=== PATIENT | female | born 1945 | race Caucasian/White ===

== ENCOUNTER 2018-06-26 14:20 | Inpatient (IN) | payer BC ==
[~2018-06-26] VITALS: Ht 172.7 cm; Wt 60.3 kg
--- NOTE | 2018-06-26 14:25 | NUR ---
AAOX3, BIB C/O WORSENING DEPRESSION AND LOSS OF APPETITE, DENIES SI/HI. RR IS EVEN AND UNLABORED WITH NAD NOTED. SKIN IS WARM AND DRY. DR FRANKLIN AT BS FOR EVAL.
[2018-06-26] MEDS ORDERED: ATOR40TA PO (14:54)
[2018-06-26] MEDS ORDERED: BENA40TA8 PO (14:54)
[2018-06-26] MEDS ORDERED: TRIA1CAP20 PO (14:54)
[2018-06-26] MEDS ORDERED: ESCI10TA PO (14:54)
[2018-06-26] MEDS ORDERED: MEMA10TA21 PO (14:54)
[2018-06-26] MEDS ORDERED: CARV3.122 PO (14:54)
[2018-06-26] MEDS ORDERED: MIRT30TA7 PO (14:54)
[2018-06-26] MEDS ORDERED: DONE5TAB34 PO (14:54)
[2018-06-26 15:00] LABS: BASOPHILS % (AUTO) 1.2 % (0.0-2.0); EOSINOPHILS % (AUTO) 1.6 % (0.0-6.0); HEMATOCRIT 32 % (33-45); LYMPHOCYTES # (AUTO) 0.9 /CMM (0.8-4.8); LYMPHOCYTES % (AUTO) 22.3 % (20.0-44.0); MEAN CORPUSCULAR HGB CONC 34 g/dl (31.0-36.0); MEAN CORPUSCULAR VOLUME 90 fL (82-100); MONOCYTES # (AUTO) 0.5 /CMM (0.1-1.30); MONOCYTES % (AUTO) 12.4 % (2.0-12.0); NEUTROPHILS # (AUTO) 2.6 /CMM (1.8-8.9); NEUTROPHILS % (AUTO) 62.5 % (43.0-81.0); PLATELET COUNT (AUTO) 251 /CMM (150-450); RDW COEFFICIENT OF VARIATION 11.4 (11.5-15.0); WHITE BLOOD COUNT (AUTO) 4.1 K/uL (4.3-11.0)
[2018-06-26 15:12] LABS: ALCOHOL, BLOOD < 3 mg/dL (0-0); CALCIUM, SERUM 8.6 mg/dL (8.5-10.1); CARBON DIOXIDE 26 mmol/L (21-32); CHLORIDE 90 mmol/L (98-107); CREATININE 1.7 mg/dL (0.6-1.3); GLUCOSE 106 mg/dL (74-106); POTASSIUM 4.2 mmol/L (3.5-5.1); SODIUM SERUM 121 mmol/L (136-145); UREA NITROGEN, BLOOD 19 mg/dL (7-18)
[2018-06-26] MEDS ORDERED: IV NS 0.9% 1,000 ML IV ONE (15:30)
--- NOTE | 2018-06-26 16:37 | NUR ---
REPORT GIVEN TO MO HOLT FOR DARÍO MS 207-2
--- NOTE | 2018-06-26 17:15 | NUR ---
PATIENT TRANSPORTED TO [facility] VIA STRETCHER. RNYANET TO PROVIDE DARÍO.
[2018-06-26] MEDS ORDERED: MAGNESIUM HYDROXIDE 30 ML UDC PO PRN (18:00)
[2018-06-26] MEDS ORDERED: Z GUARD REMEDY 2 OZ OINT TP PRN (18:00)
[2018-06-26] MEDS ORDERED: ACETAMINOPHEN 325 MG TABLET PO PRN (18:00)
[2018-06-26 18:06] VITALS: BP 122/73
--- NOTE | 2018-06-26 18:17 | NUR ---
FIXED WING PILOT PATIENT A/OX2, FORGETFUL, DENIES SI/HI, NO DISTRESS NOTED, ADMITTED FOR HYPONATREMIA, RECEIVED ORDERS FROM DR. NITA CRABTREE. ORDERS NOTED AND CARRIED OUT. PATIENT SKIN CLEAR AND INTACT, NEEDS ATTENDED AND MET, ASSESSMENTS COMPLETED, CALL LIGHT WITHIN REACH, WILL ENDORSE TO ASSEMBLER FLUORESCENT LIGHTS FOR DARÍO.
[2018-06-26] MEDS: DONEPEZIL 5 MG TABLET PO SCH (18:28)
[2018-06-26] MEDS: ATORVASTATIN 40 MG TABLET PO SCH (18:28)
[2018-06-26] MEDS: IV NS 0.9% 1,000 ML IV PRN (18:35)
--- NOTE | 2018-06-26 19:30 | NUR ---
MS RN OPENING NOTES RECEIVED PATIENT RESTING IN BED. A/OX3, DENIES SI/HI, NO DISTRESS NOTED, NO SOB, NO C/O PAIN VERBALIZED. IV ACCESS TO RFA, INTACT PATENT, RUNNING WITH IVF ORDERED. ON REGULAR DIET, TOLERATING WELL. BRP/AMBULATORY/STEADY. PATIENT SKIN CLEAR AND INTACT. BED IN LOW LOCKED POSITION. CALL LIGHT WITHIN REACH, WILL MONITOR ACCORDINGLY.
[2018-06-26 20:00] VITALS: BP 134/58
[2018-06-26] MEDS: MIRTAZAPINE 15 MG TABLET PO SCH (22:06)
--- NOTE | 2018-06-27 07:05 | NUR ---
MS RN CLOSING NOTES PATIENT SLEPT INTERMITTENTLY AT NIGHT. A/OX3 WITH FORGETFULNESS, DENIES SI/HI, NO DISTRESS NOTED, NO SOB, NO C/O PAIN VERBALIZED. IV ACCESS TO RFA, INTACT PATENT, RUNNING WITH IVF ORDERED. ON REGULAR DIET, TOLERATING WELL. BRP/AMBULATORY/STEADY. ALL NEEDS MET. BED IN LOW LOCKED POSITION. PT MOVED TO ROOM 306-2 IN STABLE CONDITION. CALL LIGHT WITHIN REACH, ENDORSED TO AM RN FOR CONTINUITY OF CARE.
--- NOTE | 2018-06-27 07:11 | NUR ---
RN OPENING NOTES RECEIVED PATIENT IN BED RESTING, A/OX3, WITH FORGETFULNESS, DENIED SI. ABLE TO MAKE NEEDS KNOWN. NO ACUTE DISTRESS, NO SOB. DENIED PAIN OR DISCOMFORT AT THIS MOMENT. IV SITE INTACT AND PATENT, IVF INFUSING ORDERED. KEPT PATIENT SAFE AND COMFORTABLE. BED IN LOW/LOCKED POSITION, SIDERAILS UPX2, CALL LIGHT IN REACH. WILL CONTINUE TO MONITOR ACCORDINGLY.
[2018-06-27 07:34] LABS: BASOPHILS # (AUTO) 0.1 /CMM (0.0-0.2); BASOPHILS % (AUTO) 1.6 % (0.0-2.0); EOSINOPHILS % (AUTO) 3.2 % (0.0-6.0); HEMATOCRIT 32 % (33-45); HEMOGLOBIN 10.5 g/dL (11.5-14.8); MEAN CORPUSCULAR HGB CONC 33 g/dl (31.0-36.0); MEAN CORPUSCULAR VOLUME 93 fL (82-100); MONOCYTES # (AUTO) 0.5 /CMM (0.1-1.30); MONOCYTES % (AUTO) 9.7 % (2.0-12.0); NEUTROPHILS # (AUTO) 3.6 /CMM (1.8-8.9); NEUTROPHILS % (AUTO) 66.5 % (43.0-81.0); PLATELET COUNT (AUTO) 222 /CMM (150-450); RDW COEFFICIENT OF VARIATION 12.6 (11.5-15.0); RED BLOOD CELL COUNT(AUTO) 3.41 MIL/uL (4.0-5.2); WHITE BLOOD COUNT (AUTO) 5.4 K/uL (4.3-11.0)
[2018-06-27 07:52] LABS: ALANINE AMINOTRANSFERASE 22 U/L (12-78); ALBUMIN 3.3 g/dL (3.4-5.0); ALKALINE PHOSPHATASE 56 U/L (46-116); ASPARTATE AMINOTRANSFERASE 26 U/L (15-37); BILIRUBIN,TOTAL 0.4 mg/dL (0.2-1.0); CALCIUM, SERUM 8.3 mg/dL (8.5-10.1); CARBON DIOXIDE 24 mmol/L (21-32); CHLORIDE 93 mmol/L (98-107); CREATININE 1.2 mg/dL (0.6-1.3); GLUCOSE 85 mg/dL (74-106); MAGNESIUM 1.5 mg/dL (1.8-2.4); PHOSPHORUS 2.5 mg/dL (2.5-4.9); SODIUM SERUM 125 mmol/L (136-145); TOTAL PROTEIN, SERUM 6.2 g/dL (6.4-8.2); UREA NITROGEN, BLOOD 14 mg/dL (7-18)
[2018-06-27 07:56] LABS: CHOLESTEROL 101 mg/dL (<200); HDL CHOLESTEROL 46 mg/dL (40-60); LDL 53 mg/dL (0-99); THYROID STIMULATING HORMONE 3.172 uIU/mL (0.358-3.74); TRIGLYCERIDES 67 mg/dL (30-150)
[2018-06-27 08:01] LABS: IRON, SERUM 67 ug/dl (50-175); TOTAL IRON BINDING CAPACITY 239 ug/dl (250-450)
[2018-06-27] MEDS: ONDANSETRON HCL/PF 4 MG/2 ML VIAL IVP PRN ×2 (08:23→14:45)
[2018-06-27] MEDS: MEMANTINE HCL 5 MG TABLET PO SCH ×2 (08:25→17:04)
[2018-06-27] MEDS: BENAZEPRIL HCL 20 MG TABLET PO SCH (08:25)
[2018-06-27] MEDS: ESCITALOPRAM OXALATE (10 MG) 10 MG TABLET PO SCH (08:25)
[2018-06-27] MEDS: CARVEDILOL 3.125 MG TABLET PO SCH ×2 (08:25→17:04)
[2018-06-27 08:32] VITALS: BP 128/55
[2018-06-27] MEDS: Magnesium 1GM/D5W 100ML PREMIX 100 ML IV SCH ×2 (10:26→12:35)
[2018-06-27 15:19] LABS: APPEARANCE,URINE SL CLOUDY (CLEAR); BILIRUBIN,URINE NEGATIVE (NEGATIVE); BLOOD, URINE 1+ Ery/uL (NEGATIVE); COLOR,URINE YELLOW (YELLOW); KETONES,URINE NEGATIVE (NEGATIVE); LEUKOCYTE ESTERASE ,URINE 2+ (NEGATIVE); NITRITE, URINE NEGATIVE (NEGATIVE); PROTEIN,URINE NEGATIVE (NEGATIVE); UGLUCOSE NEGATIVE (NEGATIVE); UROBILINOGEN,URINE 0.2 EU/dL (0.2)
[2018-06-27 15:33] LABS: BACTERIA,URINE Many /HPF (None Seen); SQUAMOUS EPITHELIAL CELL,UR Few /HPF (None Seen)
--- NOTE | 2018-06-27 15:38 | NUR ---
RN NOTES PATIENT STILL COMPLAINTS OF NAUSEA STATING ZOFRAN IS NOT WORKING. NOTIFIED DR NITA CRABTREE, NEW ORDER OF REGLAN 10 MG IV Q8H PRN NOTED AND WILL CARRY OUT.
[2018-06-27 15:58] LABS: CREATININE, URINE 42.6 MG/DL (30.0-125.0); URINE TOTAL PROTEIN 6.9 mg/dL (0-11.9)
[2018-06-27 16:03] VITALS: BP 144/70
[2018-06-27 16:32] LABS: EOSINOPHIL,URINE None Seen
[2018-06-27] MEDS: DONEPEZIL 5 MG TABLET PO SCH (17:03)
[2018-06-27] MEDS: ATORVASTATIN 40 MG TABLET PO SCH (17:04)
[2018-06-27] MEDS: METOCLOPRAMIDE HCL 10 MG/2 ML VIAL IV PRN (17:05)
--- NOTE | 2018-06-27 17:46 | NUR ---
RN NOTES: HOME MEDS HOME MEDICATION BROUGHT BY FAMILY MEMBER WAS GIVEN TO THE PHARMACY
[2018-06-27] MEDS: ENSURE ENLIVE 237 ML LIQUID (VANILLA) PO SCH (17:54)
--- NOTE | 2018-06-27 18:14 | NUR ---
RN NOTES: PSYCH CONSULT FOLLOWED UP WITH [facility] REGARDING PSYCH CONSULT. PER ASHA BUNDY DISASTER RECOVERY SPECIALIST, THEY HANDED THE PATIENT'S FACESHEET TO DR OLVERA THIS MORNING.
--- NOTE | 2018-06-27 19:08 | NUR ---
RN CLOSING NOTES PATIENT IN STABLE CONDITION. FAMILY AT BEDSIDE. ALL NEEDS ATTENDED AND PROVIDED. ALL DUE MEDICATIONS GIVEN A ORDERED. KEPT PATIENT SAFE AND COMFORTABLE. BED IN LOW/LOCKED POSITION, SIDERAILS UPX2, BED ALARM ON, CALL LIGHT IN REACH. ENDORSED TO NIGHT RN FOR DARÍO.
--- NOTE | 2018-06-27 19:08 | NUR ---
MS RN OPENING NOTES RECEIVED PATIENT RESTING IN BED. A/OX3, @ BED SIDE. DENIES SI/HI, NO DISTRESS NOTED, NO SOB, NO C/O PAIN VERBALIZED. IV ACCESS TO RFA, INTACT PATENT, RUNNING WITH IVF ORDERED. ON REGULAR DIET, TOLERATING WELL. BRP/AMBULATORY/STEADY. BED IN LOW LOCKED POSITION. SAFETY MEASURES IN PLACE. CALL LIGHT WITHIN REACH, WILL MONITOR ACCORDINGLY.
[2018-06-27 19:43] LABS: URINE SODIUM, RANDOM 35 mmol/l (40-220)
[2018-06-27 20:00] VITALS: BP 103/55
[2018-06-27 20:00] LABS: OSMOLALITY,URINE 247 mOS/kg (340-1090)
[2018-06-27] MEDS: IV NS 0.9% 1,000 ML IV PRN (21:05)
[2018-06-27] MEDS: MIRTAZAPINE 15 MG TABLET PO SCH (21:06)
--- NOTE | 2018-06-28 01:00 | NUR ---
MS RN NOTE PATIENT NOTED TO BE SLEEPING COMFORTABLY, NO ACUTE DISTRESS NOTED. MONITORING CLOSELY.
[2018-06-28 06:17] LABS: ALANINE AMINOTRANSFERASE 20 U/L (12-78); ALBUMIN 3.1 g/dL (3.4-5.0); ALKALINE PHOSPHATASE 59 U/L (46-116); ASPARTATE AMINOTRANSFERASE 25 U/L (15-37); BILIRUBIN,TOTAL 0.3 mg/dL (0.2-1.0); CALCIUM, SERUM 8.1 mg/dL (8.5-10.1); CARBON DIOXIDE 25 mmol/L (21-32); CHLORIDE 94 mmol/L (98-107); GLUCOSE 83 mg/dL (74-106); MAGNESIUM 1.8 mg/dL (1.8-2.4); PHOSPHORUS 2.4 mg/dL (2.5-4.9); POTASSIUM 4.4 mmol/L (3.5-5.1); SODIUM SERUM 124 mmol/L (136-145); TOTAL PROTEIN, SERUM 5.9 g/dL (6.4-8.2); UREA NITROGEN, BLOOD 12 mg/dL (7-18)
[2018-06-28 06:25] LABS: BASOPHILS # (AUTO) 0.1 /CMM (0.0-0.2); BASOPHILS % (AUTO) 1.5 % (0.0-2.0); EOSINOPHILS % (AUTO) 4.1 % (0.0-6.0); HEMATOCRIT 30 % (33-45); LYMPHOCYTES # (AUTO) 1.1 /CMM (0.8-4.8); LYMPHOCYTES % (AUTO) 18.1 % (20.0-44.0); MEAN CORPUSCULAR HGB CONC 33 g/dl (31.0-36.0); MEAN CORPUSCULAR VOLUME 93 fL (82-100); MONOCYTES # (AUTO) 0.6 /CMM (0.1-1.30); MONOCYTES % (AUTO) 9.5 % (2.0-12.0); NEUTROPHILS # (AUTO) 4.1 /CMM (1.8-8.9); NEUTROPHILS % (AUTO) 66.8 % (43.0-81.0); PLATELET COUNT (AUTO) 210 /CMM (150-450); RDW COEFFICIENT OF VARIATION 12.6 (11.5-15.0); RED BLOOD CELL COUNT(AUTO) 3.27 MIL/uL (4.0-5.2); WHITE BLOOD COUNT (AUTO) 6.1 K/uL (4.3-11.0)
--- NOTE | 2018-06-28 06:32 | NUR ---
MS RN CLOSING NOTES PATIENT SLEPT INTERMITTENTLY AT NIGHT. A/OX3 WITH FORGETFULNESS, DENIES SI/HI, NO DISTRESS NOTED, NO SOB, NO C/O PAIN VERBALIZED. IV ACCESS TO RFA, INTACT PATENT, RUNNING WITH IVF ORDERED. BRP/AMBULATORY/STEADY. ALL NEEDS MET. BED IN LOW LOCKED POSITION. CALL LIGHT WITHIN REACH, ENDORSED TO AM RN FOR CONTINUITY OF CARE.
--- NOTE | 2018-06-28 07:43 | NUR ---
RN NOTES PATIENT A/OX2, FORGETFUL, BREATHING EVEN AND UNLABORED, NO SOB NOTED, DENIES PAIN OR DISCOMFORT AT THIS TIME, IVF INFUSING AND TOLERATING WELL, CALL LIGHT WITHIN REACH, WILL CONTINUE TO MONITOR.
[2018-06-28 08:13] VITALS: BP 125/58
[2018-06-28] MEDS: CARVEDILOL 3.125 MG TABLET PO SCH ×2 (09:00→16:18)
[2018-06-28] MEDS: ENSURE ENLIVE 237 ML LIQUID (VANILLA) PO SCH ×3 (09:05→17:09)
[2018-06-28] MEDS: MEMANTINE HCL 5 MG TABLET PO SCH ×2 (09:06→17:09)
[2018-06-28] MEDS: ESCITALOPRAM OXALATE (10 MG) 10 MG TABLET PO SCH (09:06)
[2018-06-28] MEDS: BENAZEPRIL HCL 20 MG TABLET PO SCH (09:06)
[2018-06-28] MEDS: METOCLOPRAMIDE HCL 10 MG/2 ML VIAL IV PRN (09:33)
[2018-06-28] MEDS ORDERED: Sodium Phosphate 15 MMOL in IV D5W 250 ML IV ONE (10:30)
[2018-06-28] MEDS: IV NS 0.9% 1,000 ML IV PRN (11:15)
[2018-06-28 16:18] VITALS: BP 120/58
[2018-06-28] MEDS: DONEPEZIL 5 MG TABLET PO SCH (17:09)
[2018-06-28] MEDS: ATORVASTATIN 40 MG TABLET PO SCH (17:09)
[2018-06-28] MEDS: ONDANSETRON HCL/PF 4 MG/2 ML VIAL IVP PRN (18:03)
--- NOTE | 2018-06-28 18:24 | NUR ---
RN NOTES PATIENT A/OX2, VERY FORGETFUL, PATIENT WAS SEEN BY DR. OLVERA, NO NEW ORDER AT THIS TIME. IVF INFUSING AND TOLERATING WELL, AT BEDSIDE, PATIENT DENIES SI/I AT THIS TIME. ENCOURAGED ORAL INTAKE, IMPLEMENTED FLUID RESTRICTION OF 800ML/DAY. NEEDS ATTENDED AND MET, CALL LIGHT WITHIN REACH, WILL ENDORSE TO ELECTROLYSIS ENGINEER FOR DARÍO.
--- NOTE | 2018-06-28 19:15 | NUR ---
MS RN OPENING NOTES: RECEIVED PT ON ROM AIR AND IS TOLERATING WELL. AT BEDSIDE. PT IS A/OX2-3. PT HAS IV ON R FOREARM #22G AND IS BEING INFUSED WITH NS AT 75ML/HR. CALL LIGHT WITHIN PT'S REACH. BED KEPT IN LOW, LOCKED POSITION, AND SIDE RAILS X 2UP. WILL CONTINUE TO MONITOR PT.
[2018-06-28 20:00] VITALS: BP 104/48
[2018-06-28] MEDS: MIRTAZAPINE 15 MG TABLET PO SCH (21:10)
[2018-06-29] MEDS: IV NS 0.9% 1,000 ML IV PRN (05:15)
--- NOTE | 2018-06-29 06:17 | NUR ---
MS RN CLOSING NOTES: ALL NEEDS WERE ATTENDED AND ANTICIPATED FOR. PT KEPT CLEAN, DRY, AND COMFORTABLE. PT RESTING IN BED COMFORTABLY AT THIS TIME. PT NEEDS CONSTANT REORIENTATION PT HAS EPISODES OF FORGETFULNESS. PT HAS IV AND IS BEING INFUSED WITH NS 75ML/HR. CALL LIGHT WITHIN PT'S REACH. BED KEPT IN LOW, LOCKED POSITION, AND SIDE RAILS X 2UP. WILL ENDORSE TO AM NURSE FOR DARÍO.
[2018-06-29 06:38] LABS: BASOPHILS # (AUTO) 0.1 /CMM (0.0-0.2); BASOPHILS % (AUTO) 1.2 % (0.0-2.0); EOSINOPHILS % (AUTO) 2.7 % (0.0-6.0); HEMATOCRIT 29 % (33-45); HEMOGLOBIN 9.9 g/dL (11.5-14.8); LYMPHOCYTES % (AUTO) 16.2 % (20.0-44.0); MEAN CORPUSCULAR HGB CONC 34 g/dl (31.0-36.0); MEAN CORPUSCULAR VOLUME 92 fL (82-100); MONOCYTES # (AUTO) 0.7 /CMM (0.1-1.30); MONOCYTES % (AUTO) 10.6 % (2.0-12.0); NEUTROPHILS # (AUTO) 4.3 /CMM (1.8-8.9); NEUTROPHILS % (AUTO) 69.3 % (43.0-81.0); PLATELET COUNT (AUTO) 211 /CMM (150-450); RDW COEFFICIENT OF VARIATION 12.9 (11.5-15.0); RED BLOOD CELL COUNT(AUTO) 3.19 MIL/uL (4.0-5.2); WHITE BLOOD COUNT (AUTO) 6.2 K/uL (4.3-11.0)
[2018-06-29 06:57] LABS: ALANINE AMINOTRANSFERASE 20 U/L (12-78); ALBUMIN 2.9 g/dL (3.4-5.0); ALKALINE PHOSPHATASE 56 U/L (46-116); ASPARTATE AMINOTRANSFERASE 22 U/L (15-37); BILIRUBIN,TOTAL 0.2 mg/dL (0.2-1.0); CARBON DIOXIDE 27 mmol/L (21-32); CHLORIDE 99 mmol/L (98-107); CREATININE 0.8 mg/dL (0.6-1.3); GLUCOSE 83 mg/dL (74-106); MAGNESIUM 1.7 mg/dL (1.8-2.4); PHOSPHORUS 2.4 mg/dL (2.5-4.9); SODIUM SERUM 130 mmol/L (136-145); TOTAL PROTEIN, SERUM 5.7 g/dL (6.4-8.2); UREA NITROGEN, BLOOD 11 mg/dL (7-18)
--- NOTE | 2018-06-29 07:05 | NUR ---
MS RN INITIAL NOTES report received at bedside. patient received in bed, awake, and verbally responsive. Denies any pain at the moment. No SOB/labored breathing noted. Not in any type of distress. IV on right forearm noted with NS fluids running. Safety measures in place. Will continue to monitor and assess patient.
[2018-06-29 08:00] VITALS: BP 131/60
[2018-06-29] MEDS: BENAZEPRIL HCL 20 MG TABLET PO SCH (08:46)
[2018-06-29] MEDS: ESCITALOPRAM OXALATE (10 MG) 10 MG TABLET PO SCH (08:46)
[2018-06-29] MEDS: MEMANTINE HCL 5 MG TABLET PO SCH ×2 (08:46→17:27)
[2018-06-29] MEDS: CARVEDILOL 3.125 MG TABLET PO SCH ×2 (08:46→17:27)
[2018-06-29] MEDS: ENSURE ENLIVE 237 ML LIQUID (VANILLA) PO SCH ×3 (09:31→17:37)
[2018-06-29] MEDS: Magnesium 1GM/D5W 100ML PREMIX 100 ML IV SCH ×2 (10:40→11:14)
[2018-06-29] MEDS ORDERED: K PHOS NEUTRAL 250 MG TABLET PO ONE (11:00)
[2018-06-29 16:00] VITALS: BP 123/68
[2018-06-29] MEDS: DONEPEZIL 5 MG TABLET PO SCH (17:27)
[2018-06-29] MEDS: ATORVASTATIN 40 MG TABLET PO SCH (17:27)
--- NOTE | 2018-06-29 19:42 | NUR ---
MS RN OPENING NOTES PT WAS RECIEVED IN BED AT LOWEST AND LOCKED POSITION WITH SIDE RAILS UP X2, NO S/S OF PAIN OR DISTRESS NOTED, BREATHING IS EVEN AND UNLABORED ON RA, PT IS AMBULATORY, SKIN IS DRY AND INTACT, SAFETY PRECAUTIONS IN PLACE, WILL CONTINUE TO MONITOR.
--- NOTE | 2018-06-29 19:51 | NUR ---
MS RN CLOSING NOTES Dr. Stinson came to visit and interview patient. Awaiting for accepting facility. Report given to oncoming shift nurse. Patient in bed, awake and verbally responsive. Alert and oriented x2-3 with episodes of confusion and forgetfulness. Denies any pain. All due meds given and tolerated. No IV access (provider aware). Continue to encourage patient to increase oral intake. On room air with no SOB/labored breathing noted. Not in any type of distress. Afebrile. All needs anticipated and met. Bed in locked and lowest position with call light within reach. Endorsed to oncoming shift nurse.
[2018-06-29 20:00] VITALS: BP 113/68
[2018-06-29] MEDS: MIRTAZAPINE 15 MG TABLET PO SCH (21:55)
[2018-06-29] MEDS ORDERED: risperiDONE 0.25 MG TABLET PO ONE (22:00)
[2018-06-30 06:36] LABS: CALCIUM, SERUM 8.6 mg/dL (8.5-10.1); CARBON DIOXIDE 28 mmol/L (21-32); CHLORIDE 100 mmol/L (98-107); CREATININE 0.8 mg/dL (0.6-1.3); GLUCOSE 89 mg/dL (74-106); MAGNESIUM 1.8 mg/dL (1.8-2.4); PHOSPHORUS 2.7 mg/dL (2.5-4.9); POTASSIUM 4.3 mmol/L (3.5-5.1); SODIUM SERUM 134 mmol/L (136-145); UREA NITROGEN, BLOOD 10 mg/dL (7-18)
--- NOTE | 2018-06-30 06:38 | NUR ---
MS RN CLOSING NOTES PT IN BED AT LOWEST AND LOCKED POSITION WITH SIDE RAILS UP X2, NO S/S OF PAIN OR DISTRESS NOTED, BREATHING IS EVEN AND UNLABORED ON RA, A/O X2 SHE HAS BRIEF PERIODS OF CONFUSION AND FORGETFULNESS, PT IS AMBULATORY, SKIN IS DRY AND INTACT, SAFETY PRECAUTIONS IN PLACE, CALL LIGHT WITHIN REACH, ALL NEEDS ATTENDED TO, WILL ENDORSE TO DAY SHIFT FOR DARÍO.
--- NOTE | 2018-06-30 07:23 | NUR ---
RN OPENING NOTES RECEIVED PATIENT IN BED RESTING, A/OX2, WITH EPISODES OF CONFUSION AND FORGETFULNESS, REORIENTED PATIENT OF POC. DENIED SI. ABLE TO MAKE NEEDS KNOWN. NO ACUTE DISTRESS, NO SOB. DENIED PAIN OR DISCOMFORT AT THIS MOMENT. NO IV ACCESS. FOR DISCHARGE, WAITING FOR PLACEMENT. KEPT PATIENT SAFE AND COMFORTABLE. BED IN LOW/LOCKED POSITION, SIDERAILS UPX2, CALL LIGHT IN REACH. WILL CONTINUE TO MONITOR ACCORDINGLY.
[2018-06-30 08:00] VITALS: BP 124/53
[2018-06-30] MEDS: risperiDONE 0.25 MG TABLET PO SCH ×2 (09:20→17:42)
[2018-06-30] MEDS: ESCITALOPRAM OXALATE (10 MG) 10 MG TABLET PO SCH (09:21)
[2018-06-30] MEDS: BENZTROPINE MESYLATE (1 MG) 1 MG TABLET PO SCH ×2 (09:22→17:43)
[2018-06-30] MEDS: BENAZEPRIL HCL 20 MG TABLET PO SCH (09:23)
[2018-06-30] MEDS: MEMANTINE HCL 5 MG TABLET PO SCH ×2 (09:23→17:46)
[2018-06-30] MEDS: CARVEDILOL 3.125 MG TABLET PO SCH ×2 (09:23→17:45)
[2018-06-30] MEDS: ENSURE ENLIVE 237 ML LIQUID (VANILLA) PO SCH ×3 (09:24→17:48)
[2018-06-30] MEDS: CEPHALEXIN MONOHYDRATE 500 MG CAPSULE PO SCH ×2 (11:45→21:21)
[2018-06-30 16:00] VITALS: BP 110/51
[2018-06-30] MEDS: ATORVASTATIN 40 MG TABLET PO SCH (17:43)
[2018-06-30] MEDS: DONEPEZIL 5 MG TABLET PO SCH (17:44)
--- NOTE | 2018-06-30 19:25 | NUR ---
RN CLOSING NOTES PATIENT IN STABLE CONDITION. AT BEDSIDE. ALL NEEDS ATTENDED AND PROVIDED. ALL DUE MEDICATIONS GIVEN ORDERED. KEPT PATIENT SAFE AND COMFORTABLE. BED IN LOW/LOCKED POSITION, SIDEAILS UPX2, CALL LIGHT IN REACH. ENDORSED TO NIGHT RN FOR DARÍO.
--- NOTE | 2018-06-30 19:25 | NUR ---
RN INITIAL NOTES Received patient in bed, alert, oriented x 2. at bedside. Breathing even and unlabored. Not in any distress. No complaints as of this time. Call alcocer within reach, bed in low locked position. Patient stable as per morning shift RN. Will continue to monitor accordingly
--- NOTE | 2018-06-30 19:35 | NUR ---
RN NOTES Patient's IV line already removed by morning shift RN.
[2018-06-30 20:00] VITALS: BP 97/44
[2018-06-30] MEDS: MIRTAZAPINE 15 MG TABLET PO SCH (21:22)
--- NOTE | 2018-06-30 23:46 | NUR ---
RN NOTES Vital signs re-checked. BP- 108/59, HR- 60, RR- 18, SPO2- 97% on RA. Patient is calm and cooperative and denies any SI. Will continue to monitor accordingly
[2018-07-01 00:15] VITALS: BP 108/59
--- NOTE | 2018-07-01 06:59 | NUR ---
RN CLOSING NOTES PATIENT IN STABLE CONDITION. SLEPT THROUGH THE NIGHT. ALL NEEDS ATTENDED TO AND PROVIDED FOR. ALL DUE MEDICATIONS GIVEN ORDERED. KEPT PATIENT SAFE AND COMFORTABLE. BED IN LOW/LOCKED POSITION, SIDEAILS UPX2, CALL LIGHT IN REACH. WILL ENDORSE DARÍO TO ONCOMING RN.
[2018-07-01 08:00] VITALS: BP 123/60
--- NOTE | 2018-07-01 08:00 | NUR ---
MS RN AM NOTES Received patient in bed, alert, oriented x 2. at bedside. Breathing even and unlabored. Not in any distress. No complaints as of this time. No s/s of HI/SI.Call alcocer within reach, bed in low locked position. Patient with stable V/S and ambulated in the hallway with the .Pending discharge for psych placement.Will continue to monitor accordingly
[2018-07-01 08:27] VITALS: BP 123/60
[2018-07-01] MEDS: CARVEDILOL 3.125 MG TABLET PO SCH (09:40)
[2018-07-01] MEDS: BENAZEPRIL HCL 20 MG TABLET PO SCH (09:40)
[2018-07-01] MEDS: CEPHALEXIN MONOHYDRATE 500 MG CAPSULE PO SCH (09:40)
[2018-07-01] MEDS: ESCITALOPRAM OXALATE (10 MG) 10 MG TABLET PO SCH (09:40)
[2018-07-01] MEDS: MEMANTINE HCL 5 MG TABLET PO SCH (09:41)
[2018-07-01] MEDS: risperiDONE 0.25 MG TABLET PO SCH (09:41)
[2018-07-01] MEDS: BENZTROPINE MESYLATE (1 MG) 1 MG TABLET PO SCH (09:44)
[2018-07-01] MEDS: ENSURE ENLIVE 237 ML LIQUID (VANILLA) PO SCH ×2 (09:44→12:39)
[2018-07-01 16:00] VITALS: BP 99/51
--- NOTE | 2018-07-01 17:00 | NUR ---
DISCHARGED PT HOME WITH [facility] .FOLLOW UP FOR SAFETY EVAL.DISCHARGE INSTRUCTIONS,PRESCRIPTIONS,MED AND HEALTH TEACHING GIVEN TO THE PT.SKIN INTACT.CALLED IN PSYCH MEDS TO [facility] AND SPOKE TO YONAS OF [facility].FAXED ALL MED ORDERS AND CONFIRMED RECEIVED BY [facility],ANGELITA SHARYN.INSTRUCTED TO F/U WITH OUTPATIENT BEHAVIORAL UNIT WHICH [facility] WILL ASSIST FAMILY TO F/U PER FERDINAND TAYLOR MGR.
== END 2018-07-01 17:05 | disposition home health service (06) | DRG 682 ==
LOC: ER 14:22 → MEDSG2 16:43 → MED 06-27 06:27
PROVIDERS: ADMIT Nurse Practitioner Acute Care; ATTEND Nurse Practitioner Acute Care
DX: N17.0 Acute kidney failure with tubular necrosis (principal); G93.41 Metabolic encephalopathy; E87.1 Hypo-osmolality and hyponatremia; N39.0 Urinary tract infection, site not specified; E86.0 Dehydration; F41.9 Anxiety disorder, unspecified; I10 Essential (primary) hypertension; E78.5 Hyperlipidemia, unspecified; F29 Unspecified psychosis not due to a substance or known physiological condition; T50.2X5A Adverse effect of carbonic-anhydrase inhibitors, benzothiadiazides and other diuretics, initial encounter; F31.9 Bipolar disorder, unspecified; F01.50 Vascular dementia, unspecified severity, without behavioral disturbance, psychotic disturbance, mood disturbance, and anxiety; F43.10 Post-traumatic stress disorder, unspecified; B96.20 Unspecified Escherichia coli [E. coli] as the cause of diseases classified elsewhere; Y92.89 Other specified places as the place of occurrence of the external cause
CPT/HCPCS: 36415; 80048-TC; 80053-TC; 80061-TC; 80305; 81000-TC; 82533; 82570-TC; 83540-TC; 83735-TC; 83935-TC; 84100-TC; 84155-TC; 84300-TC; 84443-TC; 85025-TC; 87081-TC; 87086-TC; 87186-TC; 93307-TC; A4606; A6402; A6403; A9563; G0480; J2405; J2765; J3475; J7030; J7060; Z7610